=== PATIENT | female | born 1970 | race Caucasian/White ===

== ENCOUNTER 2024-02-09 15:14 | Emergency (ER) | payer OTHER, SELFPAY ==
[2024-02-09 15:26] VITALS: BP 123/69; PULSE 80; RESP 20; TEMP 36.4; O2SAT 100
--- NOTE | 2024-02-09 15:27 | ED.FEMALEGU ---
HPI - Female Genitourinary General Chief complaint: Urogenital-Female Stated complaint: Urinary Problem Source: patient and RN notes reviewed Mode of arrival: ambulatory Limitations: no limitations History of Present Illness HPI Narrative: 53 y/o female presented for c/o abdominal and back pain for 3 days. States pain is worse today, Resulting in dizziness and sweating. pain is constant but changes in intensity worse with bending over. Pain is 'all over' abdomen and lower back. Denies hematuria, urgency, nausea, vomiting, diarrhea, constipation, fevers or chills. Taking Aleve. Related Data Home Medications Medication Instructions Recorded Confirmed bupropion HCl 150 mg tablet,12 hr 150 mg PO DAILY 02/09/24 02/09/24 sustained-release hydroxyzine HCl 25 mg tablet 10 mg PO DAILY 02/09/24 02/09/24 Allergies Allergy/AdvReac Type Severity Reaction Status Date / Time No Known Allergies Allergy Verified 02/09/24 15:33 Review of Systems Review of Systems: CONSTITUTIONAL: Denies body aches, fever, chills, or sweats. CARDIOVASCULAR: Denies chest pain, palpitations, or edema. RESPIRATORY: Denies cough or dyspnea. GASTROINTESTINAL: Reports abdominal pain, Denies nausea, vomiting, or diarrhea. GENITOURINARY: denies dysuria, frequency, urgency, hematuria, flank pain SKIN: Denies rash, itching, or wounds. MUSCULOSKELETAL: reports back pain [facility] Past Medical History Medical History (Updated 02/09/24 @ 16:06 by Edith Hoff APRN) No pertinent past medical history Comments At time of signature, I have reviewed and agree with nursing past medical, surgical, social and family history unless otherwise noted. Please see nursing chart for further information. There is no relevant family history pertinent to the presenting complaint Exam Narrative: GENERAL: appears in pain, nontoxic no distress ENT: Mucous membranes pink and moist. CHEST: No respiratory distress. Clear to auscultation. HEART: Regular rate and rhythm. ABDOMEN: Soft, nondistended, decreased bowel sounds, generalized tenderness. No CVA tenderness MUSCULOSKELETAL: No bony tenderness. SKIN: Warm, dry, no rash. NEURO: No focal deficits. Alert and oriented x3. Gait steady. PSYCH: Normal affect. Course Course Emergency Course: Patient is aware of diagnosis, understands and agrees to treatment plan. Anticipatory guidance given. Patient agrees to follow-up as directed and is aware of reasons to seek care at the emergency department. Portions of this record may have been created with voice recognition software Level of Care: Express Care Visit Vital Signs Vital signs: Vital Signs Temperature 97.5 F L 02/09/24 15:26 Pulse Rate 80 02/09/24 15:26 Respiratory Rate 20 02/09/24 15:26 Blood Pressure 123/69 02/09/24 15:26 Pulse Oximetry 100 02/09/24 15:26 Oxygen Delivery Room Air 02/09/24 15:26 Temperature 97.5 F L 02/09/24 15:26 Pulse Rate 80 02/09/24 15:26 Respiratory Rate 20 02/09/24 15:26 Blood Pressure 123/69 02/09/24 15:26 Pulse Oximetry 100 02/09/24 15:26 Oxygen Delivery Room Air 02/09/24 15:26 Reviewed Transfer Transfered to: [facility] Transportation: Other ( Private vehicle) Transfer rationale: Pt is agreeable to transfer. Requests transfer to [facility] via private vehicle/ ambulance. Risks of transportation reviewed with pt including injury, worsening of condition and . v/u. Aunt will be driving pt; Report called to hospital, spoke with Leslee FELDMNA, Dr Galloway, accepting physician. Pt is in stable condition at time of transfer. Advised to remain NPO and go directly to the hospital. MDM - Female Genitourinary MDM Narrative Medical decision making narrative: results of urine reviewed with patient. patient reports increasing abdominal pain and back pain. Advised ER transfer for further evaluation. Differential Diagnosis Differential diag
== END 2024-02-09 16:00 | disposition short-term general hospital (02) ==
PROVIDERS: Emergency Provider Nurse Practitioner Family
DX: R10.9 Unspecified abdominal pain (principal)
CPT/HCPCS: 81003; 87086; 87088; 99213; G0463